=== PATIENT | female | born 1965 | race Hispanic/Latino ===

== ENCOUNTER → 2024-05-31 | Outpatient (CLI) | payer OTHER ==
--- NOTE | 2024-05-31 15:04 | HMCIMG ---
CT calcium scoring Clinical Information: CT HEART SAVER SCREENING Comparison: None CT Dose Index (CTDI): 13.30 mGy Dose Length Product (DLP): 186.18 total mGy-cm Findings: Calcium score 0. No identifiable calcification. The CT scan is not a complete chest CT. Covered portion is reviewed for incidental findings. No incidental findings seen. IMPRESSION: Calcium score as above. Calcium score reference stable: 0: No identifiable calcification 1- 10: Minimal identifiable calcification 11-100: Mild calcification 101- 400: Moderate calcification 401 and above: Significant calcification Automated exposure control and adequate statistical iterative reconstructions were utilized as dose reduction techniques.
== END | disposition home or self-care (01) ==
LOC: RAH 13:33
PROVIDERS: ATTEND Nurse Practitioner Family
DX: Z13.6 Encounter for screening for cardiovascular disorders (principal)
CPT/HCPCS: 75571

== ENCOUNTER → 2024-08-12 | Outpatient (CLI) | payer BC ==
--- NOTE | 2024-08-12 14:50 | HMCIMG ---
US RENAL SONOGRAM HISTORY: Pelvic pain COMPARISON: None TECHNIQUE: Renal and bladder ultrasound study was performed. FINDINGS: The right kidney measures 8.4 x 4.1 x 4.5 cm. The left kidney measures 10.9 x 3.7 x 3.7 cm. No evidence of hydronephrosis is seen of either kidney. Both kidneys are seen. Bladder is partially distended. IMPRESSION: 1. No hydronephrosis is seen.
--- NOTE | 2024-08-12 14:54 | HMCIMG ---
US PELVIC NON-OB COMP HISTORY: Pelvic pain COMPARISON: None TECHNIQUE: Transabdominal pelvic ultrasound study was performed. FINDINGS: The uterus has been removed. Both ovaries are not seen. No adnexal mass is seen. No free fluid is seen in the cul-de-sac. IMPRESSION: 1. No adnexal mass is seen. Post hysterectomy.
== END | disposition home or self-care (01) ==
LOC: RAH 13:15
PROVIDERS: ATTEND Nurse Practitioner Family
DX: N32.89 Other specified disorders of bladder (principal); R10.2 Pelvic and perineal pain; R10.9 Unspecified abdominal pain; Z90.710 Acquired absence of both cervix and uterus
CPT/HCPCS: 76770; 76856